=== PATIENT | female | born 1970 | race Caucasian/White ===

== ENCOUNTER 2018-04-07 18:53 | Inpatient (IN) | payer BC, OTHER ==
[2018-04-07 19:04] VITALS: BMI 30.1
--- NOTE | 2018-04-07 19:04 | C.PDOC ---
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 Patient states she was about to have dinner prior to onset. Patient is a noninsulin dependent diabetic. Denies fever, chills, nausea, or vomiting. Time Seen by Provider: 04/07/18 19:03 History Per: Patient History/Exam Limitations: no limitations Onset/Duration Of Symptoms: Hrs Current Symptoms Are (Timing): Still Present Severity: Moderate Pain Scale Rating Of: 4 Quality: Sharp, Tightness, Pressure, Other (Stabbing) Associated Symptoms: Dyspnea Modifying Factors: None Exacerbating Factors: None Alleviating Factors: None Recent travel outside of the [place]: No Additional History Per: Patient Past Medical History Reviewed: Historical Data, Nursing Documentation, Vital Signs Vital Signs: Last Vital Signs Temp 98.6 F 04/07/18 19:08 Pulse 83 04/07/18 20:13 Resp 16 04/07/18 20:13 BP 107/69 04/07/18 20:13 Pulse Ox 97 04/07/18 20:13 - Medical History PMH: Anxiety, Asthma - [facility] Procedures FASCIOTOMY (10/20/13) INJECT STEROID (10/20/13) INJECT/INFUSE NEC (12/28/13) OTH BUNIONECT W SFT SHADIA (10/20/13) OTHER LOCAL DESTRUC SKIN (10/20/13) Family History: States: No Known Family Hx - Social History Hx Alcohol Use: Yes Hx Substance Use: No - Immunization History Hx Tetanus Toxoid Vaccination: No Hx Influenza Vaccination: No Hx Pneumococcal Vaccination: No Review Of Systems Constitutional: Negative for: Fever, Chills Eyes: Negative for: Vision Change ENT: Negative for: Throat Pain Cardiovascular: Positive for: Chest Pain. Negative for: Palpitations Respiratory: Positive for: Shortness of Breath Gastrointestinal: Negative for: Nausea, Vomiting Genitourinary: Negative for: Dysuria Musculoskeletal: Negative for: Back Pain Skin: Negative for: Rash Neurological: Negative for: Weakness, Numbness Psych: Negative for: Anxiety Physical Exam - Physical Exam Appears: Non-toxic Skin: Warm, Dry Head: Normacephalic Eye(s): bilateral: Normal Inspection Oral Mucosa: Moist Neck: Trachea Midline, Supple Chest: Symmetrical, No Tenderness Cardiovascular: Rhythm Regular Respiratory: No Rales, No Rhonchi, No Wheezing Gastrointestinal/Abdominal: Soft, No Tenderness, No Distention, No Guarding, No Rebound Back: Normal Inspection Extremity: Normal ROM Extremity: Bilateral: Atraumatic, Normal Color And Temperature, Normal ROM Pulses: Left Dorsalis Pedis: Normal, Right Dorsalis Pedis: Normal Neurological/Psych: Oriented x3, Normal Speech, Normal Cognition Gait: Steady ED Course And Treatment - Laboratory Results Result Diagrams: 04/07/18 19:17 04/07/18 19:17 ECG: Interpreted By Me, Viewed By Me ECG Rhythm: Sinus Rhythm (74), Nonspecific Changes Pulse Ox Interpretation: Normal - Radiology CXR: Interpreted by Me, Viewed By Me CXR Interpretation: No: Infiltrates, Fracture, Pnemothorax Progress Note: EKG, blood work, and urinalysis ordered. Aspirin administered. Disposition Discussed With : Jelena Lira Comment: accepted the pt on his service and took over the care at 8:38 PM Doctor Will See Patient In The: Hospital Counseled Patient/Family Regarding: Studies Performed, Diagnosis - Disposition Disposition: HOSPITALIZED Disposition Time: 19:15 Condition: FAIR - POA Present On Arrival: Poor Glycemic Control - Clinical Impression Clinical Impression: Chest pain - Scribe Statement The provider has reviewed the documentation as recorded by the Scribe Wade Jovel All medical record entries made by the Scribe were at my direction and personally dictated by me. I have reviewed the chart and agree that the record accurately reflects my personal performance of the history, physical exam, medical decision making, and the department course for this patient. I have also personally directed, reviewed, and agree with the discharge instructions and disposition. Decision To Admit - Pt Status Changed To: Hospital Disposition Of: Inpatient - Admit Certification Admit to Inpatient:: After my assessment, the patient will require hospitalization for at least two midnights. This is because of the severity of symptoms shown, intensity of services needed, and/or the medical risk in this patient being treated as an outpatient. - InPatient: Physician Admission Certification: I certify that this patient requires 2 or more midnights of care for the following reason:: After my assessment, the patient will require hospitalization for at least two midnights. This is because of the severity of symptoms shown, intensity of services needed, and/or the medical risk in this patient being treated as an outpatient. - . Bed Request Type: Telemetry Admitting Physician: Jelena Lira Patient Diagnosis: Chest pain
[2018-04-07] MEDS ORDERED: Aspirin 325 mg EC Tablets PO STA (19:05)
[2018-04-07 19:22] LABS: BASO # 0.1 K/uL (0.0-0.2); BASO % 0.8 % (0.0-2.0); EOS # 0.2 K/uL (0.0-0.7); EOS % 2.7 % (0.0-4.0); HEMOGLOBIN 11.8 g/dL (11.0-16.0); LYMPH # 2.2 K/uL (1.0-4.3); LYMPH % 30.7 % (20.0-40.0); MEAN CELL VOLUME 87.9 fL (81.0-99.0); MEAN CORPUSCULAR HEMOGLOBIN 29.2 pg (27.0-31.0); MEAN CORPUSCULAR HGB CONC 33.3 g/dL (33.0-37.0); MEAN PLATELET VOLUME 7.9 fL (7.2-11.7); MONO # 0.5 K/uL (0.0-0.8); MONO % 7.1 % (0.0-10.0); NEUT # 4.2 K/uL (1.8-7.0); NEUT % 58.7 % (50.0-75.0); NRBC % 0.1 % (0.0-2.0); RBC 4.05 Mil/uL (3.80-5.20); WHITE BLOOD COUNT 7.2 K/uL (4.8-10.8)
[2018-04-07] MEDS ORDERED: Aspirin 325 mg EC Tablets PO ONE (19:24)
[2018-04-07 19:28] LABS: INR 1.2
[2018-04-07 19:32] LABS: ALB/GLOB RATIO 1.3 (1.0-2.1); ALBUMIN 3.9 g/dL (3.5-5.0); ALT/SGPT 43 U/L (9-52); AST/SGOT 23 U/L (14-36); BLOOD UREA NITROGEN 12 mg/dL (7-17); GFR AFRICAN-AMERICAN > 60; GFR NON-AFRICAN AMERICAN > 60; LIPASE 69 U/L (23-300)
[2018-04-07 19:43] LABS: B-TYPE NATRIURETIC PEPTIDE 60.9 pg/mL (0-450)
[2018-04-07 19:56] LABS: HCG,QUALITATIVE URINE NEGATIVE (NEGATIVE)
[2018-04-07 19:58] LABS: SQUAMOUS EPITHIAL 1 /hpf (0-5); URINE BACTERIA RARE (<OCC); URINE BILIRUBIN NEGATIVE (NEGATIVE); URINE BLOOD 3+ (NEGATIVE); URINE CLARITY Clear (Clear); URINE COLOR Colorless (YELLOW); URINE GLUCOSE (UA) NORMAL (Normal); URINE LEUKOCYTE ESTERASE NEG Leu/uL (Negative); URINE PROTEIN NEGATIVE (NEGATIVE); URINE UROBILINOGEN NORMAL mg/dL (0.2-1.0)
--- NOTE | 2018-04-07 22:31 | CP.PCM.HP ---
Past Patient History - Past Social History Smoking Status: Never Smoked - CARDIAC Hx Cardiac Disorders: Yes Hx Heart Murmur: Yes - PULMONARY Hx Asthma: Yes - ENDOCRINE/METABOLIC Hx Endocrine Disorders: Yes Hx Diabetes Mellitus Type 2: Yes - PSYCHIATRIC Hx Anxiety: Yes Hx Substance Use: No - SURGICAL HISTORY Hx Surgeries: Yes Hx Tubal Ligation: Yes Other/Comment: breast reduction,throat,bunion - ANESTHESIA Hx Anesthesia: No Hx Anesthesia Reactions: No Hx Malignant Hyperthermia: No Meds Allergies/Adverse Reactions: Allergies Allergy/AdvReac Type Severity Reaction Status Date / Time No Known Allergies Allergy Verified 04/07/18 19:11 Results - Vital Signs Recent Vital Signs: Last Vital Signs Temp 97.9 F 04/07/18 22:04 Pulse 86 04/07/18 22:04 Resp 18 04/07/18 22:04 BP 137/90 04/07/18 22:04 Pulse Ox 97 04/07/18 22:04 - Labs Result Diagrams: 04/07/18 19:17 04/07/18 19:17 Labs: Laboratory Results - last 24 hr 04/07/18 04/07/18 04/07/18 19:17 19:17 19:17 WBC 7.2 RBC 4.05 Hgb 11.8 Hct 35.6 MCV 87.9 MCH 29.2 MCHC 33.3 RDW 14.0 Plt Count 304 MPV 7.9 Neut % (Auto) 58.7 Lymph % (Auto) 30.7 [place] % (Auto) 7.1 Eos % (Auto) 2.7 Baso % (Auto) 0.8 Neut # (Auto) 4.2 Lymph # (Auto) 2.2 [place] # (Auto) 0.5 Eos # (Auto) 0.2 Baso # (Auto) 0.1 PT 13.0 H INR 1.2 APTT 32 Sodium 138 Potassium 3.6 Chloride 104 Carbon Dioxide 24 Anion Gap 13 BUN 12 Creatinine 0.6 L Est GFR ( Amer) > 60 Est GFR (Non-Af Amer) > 60 POC Glucose (mg/dL) Random Glucose 111 H Calcium 9.0 Total Bilirubin 0.3 AST 23 ALT 43 Alkaline Phosphatase 78 Troponin I < 0.0120 NT-Pro-B Natriuret Pep 60.9 Total Protein 7.0 Albumin 3.9 Globulin 3.1 Albumin/Globulin Ratio 1.3 Lipase 69 Urine Color Urine Clarity Urine pH Ur Specific [place] Urine Protein Urine Glucose (UA) Urine Ketones Urine Blood Urine Nitrate Urine Bilirubin Urine Urobilinogen Ur Leukocyte Esterase Urine WBC (Auto) Urine RBC (Auto) Ur Squamous Epith Cells Urine Bacteria Urine HCG, Qual 04/07/18 04/07/18 19:18 19:40 WBC RBC Hgb Hct MCV MCH MCHC RDW Plt Count MPV Neut % (Auto) Lymph % (Auto) [place] % (Auto) Eos % (Auto) Baso % (Auto) Neut # (Auto) Lymph # (Auto) [place] # (Auto) Eos # (Auto) Baso # (Auto) PT INR APTT Sodium Potassium Chloride Carbon Dioxide Anion Gap BUN Creatinine Est GFR ( Amer) Est GFR (Non-Af Amer) POC Glucose (mg/dL) 109 Random Glucose Calcium Total Bilirubin AST ALT Alkaline Phosphatase Troponin I NT-Pro-B Natriuret Pep Total Protein Albumin Globulin Albumin/Globulin Ratio Lipase Urine Color Colorless Urine Clarity Clear Urine pH 7.0 Ur Specific [place] 1.002 L Urine Protein Negative Urine Glucose (UA) Normal Urine Ketones Negative Urine Blood 3+ H Urine Nitrate Negative Urine Bilirubin Negative Urine Urobilinogen Normal Ur Leukocyte Esterase Neg Urine WBC (Auto) < 1 Urine RBC (Auto) 31 H Ur Squamous Epith Cells 1 Urine Bacteria Rare Urine HCG, Qual Negative
[2018-04-08 00:09] LABS: CK-MB 0.23 ng/mL (0.0-3.38)
[2018-04-08 07:43] LABS: CK-MB < 0.22 ng/mL (0.0-3.38)
--- NOTE | 2018-04-08 08:54 | RAD ---
Chest x-ray single frontal view History: Chest pain. Comparison: None available. Findings: No focal infiltrate or effusion. Heart size within normal limits. Mild right hilar prominence. Impression: No focal infiltrate or effusion.
[2018-04-08] MEDS: Enoxaparin 40 mg Syringe SC SCH (09:43)
[2018-04-08] MEDS: Pantoprazole 40 mg EC Tab PO SCH (09:45)
[2018-04-08] MEDS ORDERED: Dextrose 50% SYRINGE Inj (50 ml) IV PRN (09:56)
[2018-04-08] MEDS ORDERED: Glucagon Recombinant 1 mg Inj IM PRN (09:56)
--- NOTE | 2018-04-08 09:56 | CP.PCM.PN ---
Subjective - Date & Time of Evaluation Date of Evaluation: 04/08/18 Time of Evaluation: 09:49 - Subjective Subjective: PGY-[address] Lira's service Pt seen and examined at bedside. Nursing reports no acute events overnight. Patient found resting comfortably in bed. Patient reports persistent midsternal chest pain, that does not change with respirations/position/exertion. Rates pain as 6/10, and describes it as "stabbing pain in her chest." Denies previous occurrence. She admits seeing freight handler 5 years ago, but denies ever having stress test. She denies family history of cardiac disease. Objective - Vital Signs/Intake and Output Vital Signs (last 24 hours): Temp Pulse Resp BP Pulse Ox 97.6 F 71 18 106/67 95 04/08/18 07:55 04/08/18 08:00 04/08/18 07:55 04/08/18 07:55 04/08/18 07:55 Intake and Output: 04/08/18 04/08/18 06:59 18:59 Intake Total 500 Balance 500 - Medications Medications: Current Medications Alprazolam (Xanax) 0.25 mg PO DAILY PRN PRN Reason: Anxiety Stop: 04/14/18 22:32 Aspirin (Aspirin) 325 mg PO DAILY [facility] Last Admin: 04/08/18 09:42 Dose: 325 mg Enoxaparin Sodium (Lovenox) 40 mg SC DAILY [facility] Last Admin: 04/08/18 09:43 Dose: 40 mg Isosorbide Mononitrate (Imdur Er) 30 mg PO DAILY PRN PRN Reason: CHEST PAIN Metformin HCl (Glucophage Xr) 1,000 mg PO BID [facility] Last Admin: 04/08/18 09:44 Dose: 1,000 mg Pantoprazole Sodium (Protonix Ec Tab) 40 mg PO DAILY [facility] Last Admin: 04/08/18 09:45 Dose: 40 mg Sitagliptin Phosphate (Januvia) 50 mg PO BID [facility] Last Admin: 04/08/18 09:42 Dose: 50 mg Tramadol HCl (Ultram) 50 mg PO Q6H PRN PRN Reason: Pain, moderate (4-7) Last Admin: 04/08/18 06:51 Dose: 50 mg - Labs Labs: 04/07/18 19:17 07/19/18 19:17 PT 13.0 SECONDS (9.7-12.2) H 04/07/18 19:17 INR 1.2 04/07/18 19:17 APTT 32 SECONDS (21-34) 04/07/18 19:17 - Constitutional Appears: Non-toxic, No Acute Distress - Head Exam Head Exam: ATRAUMATIC, NORMAL INSPECTION - Eye Exam Eye Exam: EOMI. absent: Scleral icterus Pupil Exam: PERRL - ENT Exam ENT Exam: Mucous Membranes Moist - Neck Exam Neck Exam: Full ROM - Respiratory Exam Respiratory Exam: Clear to Ausculation Bilateral, NORMAL BREATHING PATTERN. absent: Chest Wall Tenderness, Rales, Rhonchi, Wheezes - Cardiovascular Exam Cardiovascular Exam: REGULAR RHYTHM, +S1, +S2 - GI/Abdominal Exam GI & Abdominal Exam: Soft, Normal Bowel Sounds. absent: Tenderness - Extremities Exam Extremities Exam: Normal Inspection. absent: Pedal Edema, Tenderness - Back Exam Back Exam: absent: CVA tenderness (L), CVA tenderness (R) - Neurological Exam Neurological Exam: Alert, Awake, Oriented x3 - Psychiatric Exam Psychiatric exam: Normal Affect, Normal Mood - Skin Skin Exam: Dry, Normal Color, Warm Assessment and Plan - Assessment and Plan (Free Text) Plan: Chest Pain, R/o ACS Admit on Tele KAMRYN negative x 3 EKG: Rate 74 bpm; No ST/T wave changes Pro-BNP 61, Lipase 63, AST/ALT WNL CXR (04/07/2018): No focal infiltrates or effusions (see full report) Dr. Dorado, Cardio on board, help appreciated - f/u reccs ASA 325 mg PO given in ED - ASA 325mg PO Daily Imdur 30mg PO Daily for chest pain O2 2L PRN f/u ECHO f/u TSH/free T4, lipid panel, Hgb A1C f/u AM CBC, CMP, Mg, Phos Hematuria UA (04/08/18): 3+ blood, 31 RBCs Anxiety Xanax 0.25mg PO Daily PRN Diabetes Mellitus Hypoglycemia Protocol Accuchecks ACHS Metformin 1000mg PO BID Januvia 50mg PO BID f/u A1c Prophylaxis Lovenox 40mg SC daily Protonix 40mg PO Daily SCDs Ignacio Stroud PGY2 All medical mgmt per Dr Lira
[2018-04-08 11:52] LABS: CK-MB < 0.22 ng/mL (0.0-3.38)
--- NOTE | 2018-04-08 16:01 | CARD ---
APPROVED REPORT Date of service: 04/08/2018 EXAM: Two-dimensional and M-mode echocardiogram with Doppler and color Doppler. INDICATION Chest Pain RISK FACTORS Diabetes 2D DIMENSIONS IVSd0.5 (0.7-1.1cm)LVDd5.1 (3.9-5.9cm) PWd0.4 (0.7-1.1cm)LVDs2.6 (2.5-4.0cm) FS (%) 49.6 %LVEF (%)50.0 (>50%) M-Mode DIMENSIONS RVDd1.59 (2.1-3.2cm)Left Atrium (MM)3.37 (2.5-4.0cm) IVSd0.62 (0.7-1.1cm)Aortic Root2.05 (2.2-3.7cm) LVDd5.24 (4.0-5.6cm)Aortic Cusp Exc.1.32 (1.5-2.0cm) PWd0.68 (0.7-1.1cm)FS (%) 45 % LVDs2.86 (2.0-3.8cm)LVEF (%)76 (>50%) Mitral Valve MV E Rojqmsao287.4cm/sMV A Gdqpfhmi67.9cm/sE/A ratio1.7 TDI E/Lateral E'0.0E/Medial E'0.0 Tricuspid Valve TR Peak [id number]/sTR Peak [id number] LEFT VENTRICLE The left ventricle is normal size. There is normal left ventricular wall thickness. Left ventricle systolic function is borderline. There is normal LV segmental wall motion. The left ventricular diastolic function is normal. RIGHT VENTRICLE The right ventricle is normal size. There is normal right ventricular wall thickness. The right ventricular systolic function is normal. ATRIA The left atrium size is normal. The right atrium size is normal. AORTIC VALVE The aortic valve is normal in structure. No aortic regurgitation is present. There is no aortic valvular stenosis. MITRAL VALVE The mitral valve is normal in structure. There is no evidence of mitral valve prolapse. There is no mitral valve stenosis. There is no mitral valve regurgitation noted. TRICUSPID VALVE The tricuspid valve is normal in structure. There is mild tricuspid regurgitation. PULMONIC VALVE The pulmonary valve is normal in structure. There is no pulmonic valvular regurgitation. GREAT VESSELS The aortic root is normal in size. The IVC is dilated. PERICARDIAL EFFUSION There is no pericardial effusion. <Conclusion> The left ventricle is normal size. There is normal left ventricular wall thickness. Left ventricle systolic function is borderline. There is normal LV segmental wall motion.
--- NOTE | 2018-04-08 20:42 | CP.PCM.PN ---
Subjective - Date & Time of Evaluation Date of Evaluation: 04/08/18 Time of Evaluation: 08:30 - Subjective Subjective: clinically same Objective - Vital Signs/Intake and Output Vital Signs (last 24 hours): Temp Pulse Resp BP Pulse Ox 97.9 F 76 18 125/78 98 04/08/18 16:00 04/08/18 16:14 04/08/18 16:00 04/08/18 16:00 04/08/18 16:00 Intake and Output: 04/08/18 04/09/18 18:59 06:59 Intake Total 300 Balance 300 - Medications Medications: Current Medications Alprazolam (Xanax) 0.25 mg PO DAILY PRN PRN Reason: Anxiety Stop: 04/14/18 22:32 Aspirin (Aspirin) 325 mg PO DAILY [facility] Last Admin: 04/08/18 09:42 Dose: 325 mg Dextrose (Dextrose 50% Inj) 0 ml IV STAT PRN; Protocol PRN Reason: Hypoglycemia Protocol Dextrose (Glutose 15) 0 gm PO ONCE PRN; Protocol PRN Reason: Hypoglycemia Protocol Enoxaparin Sodium (Lovenox) 40 mg SC DAILY [facility] Last Admin: 04/08/18 09:43 Dose: 40 mg Glucagon (Glucagen Diagnostic Kit) 0 mg IM STAT PRN; Protocol PRN Reason: Hypoglycemia Protocol Dextrose (Dextrose 5% In Water 1000 Ml) 1,000 mls @ 0 mls/hr IV .Q0M PRN; Protocol; Per Protocol PRN Reason: Hypoglycemia Protocol Isosorbide Mononitrate (Imdur Er) 30 mg PO DAILY PRN PRN Reason: CHEST PAIN Metformin HCl (Glucophage Xr) 1,000 mg PO BID [facility] Last Admin: 04/08/18 17:24 Dose: 1,000 mg Pantoprazole Sodium (Protonix Ec Tab) 40 mg PO DAILY [facility] Last Admin: 04/08/18 09:45 Dose: 40 mg Sitagliptin Phosphate (Januvia) 50 mg PO BID [facility] Last Admin: 04/08/18 17:22 Dose: 50 mg Tramadol HCl (Ultram) 50 mg PO Q6H PRN PRN Reason: Pain, moderate (4-7) Last Admin: 04/08/18 06:51 Dose: 50 mg - Labs Labs: 04/07/18 19:17 04/07/18 19:17 PT 13.0 SECONDS (9.7-12.2) H 04/07/18 19:17 INR 1.2 04/07/18 19:17 APTT 32 SECONDS (21-34) 04/07/18 19:17 - Constitutional Appears: Well - Head Exam Head Exam: ATRAUMATIC, NORMAL INSPECTION, NORMOCEPHALIC - Eye Exam Eye Exam: EOMI, Normal appearance, PERRL Pupil Exam: NORMAL ACCOMODATION, PERRL - ENT Exam ENT Exam: Mucous Membranes Moist, Normal Exam - Neck Exam Neck Exam: Full ROM, Normal Inspection. absent: Lymphadenopathy - Respiratory Exam Respiratory Exam: Decreased Breath Sounds - Cardiovascular Exam Cardiovascular Exam: REGULAR RHYTHM, +S1, +S2 - GI/Abdominal Exam GI & Abdominal Exam: Soft, Diminished Bowel Sounds - Rectal Exam Rectal Exam: Deferred
[2018-04-08 21:18] LABS: BARBITURATES, UR NEGATIVE (NEGATIVE); BENZODIAZEPINES, UR NEGATIVE (NEGATIVE); OPIATES, UR NEGATIVE (NEGATIVE); PHENCYCLIDINE, UR NEGATIVE (NEGATIVE)
--- NOTE | 2018-04-09 02:30 | CON ---
DATE: 04/08/2018 CARDIOLOGY CONSULTATION REASON FOR CONSULTATION: Chest pain. HISTORY OF PRESENT ILLNESS: The patient is a 47-year-old female who has no known prior history of coronary artery disease. She presented with a sharp retrosternal chest pain, not associated with diaphoresis or shortness of breath and non-radiating. The patient experienced her pain just before dinner last night. The patient has a history of insulin-dependant diabetes mellitus. The patient at this time is chest pain free. SOCIAL HISTORY: The patient is nonsmoker, but the patient is a drinker. MEDICATIONS: Aspirin 325 mg once a day, Glucophage 1 gm twice a day, Imdur 30 mg once a day, Januvia 50 mg once a day, Lovenox 40 mg subcutaneous once a day, Xanax 0.25 mg daily. REVIEW OF SYSTEMS: No fever or chills. No vomiting or diarrhea. No dizziness or syncope. PHYSICAL EXAMINATION: GENERAL: The patient is a middle-aged female who does not appear to be in any distress. VITAL SIGNS: Blood pressure 106/67, heart rate 75, temperature 97.6, respirations 18. HEENT: Normocephalic. NECK: No JVD. CHEST: Clear. HEART: S1, S2 are regular. ABDOMEN: Soft. EXTREMITIES: No edema. LABORATORY DATA: SMA-7: Sodium 138, potassium 3.6, chloride 104, CO2 of 24, glucose 111, BUN 12, creatinine 0.6. A total of four sets of troponins are within normal limit. Lipase level is within normal limit. Liver profile is within normal limit. CBC is entirely within normal limit. D-dimer is within normal limit. INR is 1.2 and PTT 32. EKG: There is no EKG on the [employer] database so far. ASSESSMENT: 1. Chest pain rule out myocardial infarction. 2. Uncontrolled diabetes mellitus. 3. Rule out underlying congestive heart failure. RECOMMENDATIONS: Continue aspirin 325 mg once a day, Imdur 30 mg once a day, Lovenox 40 mg subcutaneous once a day. Obtain a 12-lead EKG, and I will review the echocardiograph study performed today. Obtain drug screen. Sourav Medley MD
[2018-04-09 07:21] VITALS: BP 107/71; RESP 20; TEMP 97.5; O2SAT 97
[2018-04-09 08:13] VITALS: PULSE 66
[2018-04-09 08:19] LABS: BASO % 0.5 % (0.0-2.0); EOS # 0.3 K/uL (0.0-0.7); HEMOGLOBIN 11.9 g/dL (11.0-16.0); LYMPH # 2.3 K/uL (1.0-4.3); MEAN CELL VOLUME 88.5 fL (81.0-99.0); MEAN CORPUSCULAR HEMOGLOBIN 29.9 pg (27.0-31.0); MEAN CORPUSCULAR HGB CONC 33.7 g/dL (33.0-37.0); MEAN PLATELET VOLUME 8.5 fL (7.2-11.7); MONO # 0.4 K/uL (0.0-0.8); MONO % 6.3 % (0.0-10.0); NEUT % 50.2 % (50.0-75.0); NRBC % 0.2 % (0.0-2.0); RBC 3.98 Mil/uL (3.80-5.20); RED CELL DISTRIBUTION WIDTH 13.5 % (11.5-14.5); WHITE BLOOD COUNT 6.1 K/uL (4.8-10.8)
[2018-04-09 08:26] LABS: ALB/GLOB RATIO 1.2 (1.0-2.1); ALBUMIN 3.7 g/dL (3.5-5.0); ALT/SGPT 42 U/L (9-52); AST/SGOT 28 U/L (14-36); BLOOD UREA NITROGEN 13 mg/dL (7-17); CALCIUM 8.9 mg/dl (8.6-10.4); GFR AFRICAN-AMERICAN > 60; GFR NON-AFRICAN AMERICAN > 60; HDL CHOLESTEROL 54 mg/dL (30-70)
[2018-04-09 08:35] LABS: LDL CHOLESTEROL 65 mg/dL (0-129)
[2018-04-09] MEDS: Enoxaparin 40 mg Syringe SC SCH (09:05)
[2018-04-09] MEDS: Pantoprazole 40 mg EC Tab PO SCH (09:05)
--- NOTE | 2018-04-09 10:25 | US ---
Date of service: 04/09/2018 PROCEDURE: Ultrasound of the Kidneys HISTORY: HX of UTI COMPARISON: None available. TECHNIQUE: Sonogram of the kidneys. FINDINGS: RIGHT KIDNEY: Measures: 10.8 x 5.7 x 6.3 cm. Normal in size, contour and echogenicity. There is no definitive hydronephrosis. No urolithiasis or discrete cystic or solid masses identified. LEFT KIDNEY: Measures: 11.0 x 6.1 x 5.8 cm. Normal in size, contour and echogenicity. No stone, solid mass lesion or hydronephrosis visualized. OTHER FINDINGS: None. IMPRESSION: Unremarkable renal sonogram.
--- NOTE | 2018-04-09 10:51 | CP.PCM.PN ---
Subjective - Date & Time of Evaluation Date of Evaluation: 04/09/18 Time of Evaluation: 10:48 - Subjective Subjective: PATIENT WAS ADMITTED FOR CHEST PAIN DENIES CHEST PAIN / SOB NO SIGN OF DISTRESS NOTED Objective - Vital Signs/Intake and Output Vital Signs (last 24 hours): Temp Pulse Resp BP Pulse Ox 97.5 F L 66 20 107/71 97 04/09/18 07:20 04/09/18 08:00 04/09/18 07:20 04/09/18 07:20 04/09/18 07:20 - Medications Medications: Current Medications Alprazolam (Xanax) 0.25 mg PO DAILY PRN PRN Reason: Anxiety Stop: 04/14/18 22:32 Aspirin (Aspirin) 325 mg PO DAILY [facility] Last Admin: 04/09/18 09:05 Dose: 325 mg Dextrose (Dextrose 50% Inj) 0 ml IV STAT PRN; Protocol PRN Reason: Hypoglycemia Protocol Dextrose (Glutose 15) 0 gm PO ONCE PRN; Protocol PRN Reason: Hypoglycemia Protocol Enoxaparin Sodium (Lovenox) 40 mg SC DAILY [facility] Last Admin: 04/09/18 09:05 Dose: 40 mg Glucagon (Glucagen Diagnostic Kit) 0 mg IM STAT PRN; Protocol PRN Reason: Hypoglycemia Protocol Dextrose (Dextrose 5% In Water 1000 Ml) 1,000 mls @ 0 mls/hr IV .Q0M PRN; Protocol; Per Protocol PRN Reason: Hypoglycemia Protocol Isosorbide Mononitrate (Imdur Er) 30 mg PO DAILY PRN PRN Reason: CHEST PAIN Metformin HCl (Glucophage Xr) 1,000 mg PO BID [facility] Last Admin: 04/09/18 09:05 Dose: 1,000 mg Pantoprazole Sodium (Protonix Ec Tab) 40 mg PO DAILY [facility] Last Admin: 04/09/18 09:05 Dose: 40 mg Sitagliptin Phosphate (Januvia) 50 mg PO BID [facility] Last Admin: 04/09/18 09:05 Dose: 50 mg Tramadol HCl (Ultram) 50 mg PO Q6H PRN PRN Reason: Pain, moderate (4-7) Last Admin: 04/08/18 06:51 Dose: 50 mg - Labs Labs: 04/09/18 08:02 04/09/18 08:02 PT 13.0 SECONDS (9.7-12.2) H 04/07/18 19:17 INR 1.2 04/07/18 19:17 APTT 32 SECONDS (21-34) 04/07/18 19:17 Assessment and Plan - Assessment and Plan (Free Text) Assessment: PATIENT SEEN AND EXAMINED AT THE BEDSIDE LUNG SOUND CLEAR MAKAYLA ECG NORMAL RENAL US WAS UNREMARKABLE DISCUSS WITH DR Ugo STILES AND DR DAVIES WHO CLEAR FOR DC FOLLOW UP WITH DR Ugo STILES IN 1-2 WEEK AT HIS OFFICE --CALL FOR APPOINTMENT CONTINUE ALL YOUR HOME MEDICATION NEW PRESCRIPTION GIVEN PROTONIX 40 MG PO DAILY ASPIRIN 325 MG PO DAILY ACTIVITY TOLERATED CALL DR Ugo STILES OR GO TO THE EMERGENCY ROOM IF SYMPTOMS RETURN OR WORSENING DISCUSS WITH PATIENT WHO AGREE AND VERBALIZED UNDERSTANDING
== END 2018-04-09 12:02 | disposition home or self-care (01) | DRG 313 ==
LOC: C.ER 18:53 → C.9E 20:37 → C.5S 21:25
PROVIDERS: ADMIT Internal Medicine Nephrology; ATTEND Internal Medicine Nephrology
DX: R07.2 Precordial pain (principal); E11.65 Type 2 diabetes mellitus with hyperglycemia; J45.909 Unspecified asthma, uncomplicated; Z79.4 Long term (current) use of insulin; Z79.82 Long term (current) use of aspirin; Z98.51 Tubal ligation status

== ENCOUNTER 2018-12-21 06:24 | Day surgery (SDC) | payer BC ==
[2018-12-21 06:45] VITALS: BMI 32.8
[2018-12-21] MEDS ORDERED: Lactated Ringer's 500 ML IV ONE (08:21)
--- NOTE | 2018-12-21 08:21 | CP.SDSHP ---
Same Day Surgery H & P - History Proposed Procedure: EGD Pre-Op Diagnosis: GERD - Previous Medical/Surgical History Pulmonary: Asthma - Allergies Allergies: Allergies No Known Allergies Allergy (Verified 04/07/18 19:11) - Physical Exam General Appearance: NAD Vital Signs: Vital Signs 12/21/18 06:46 Temperature 97.3 F L Pulse Rate 80 Respiratory 20 Rate Blood Pressure 124/83 O2 Sat by Pulse 97 Oximetry Mental Status: Alert & Oriented x3 Neuro: WNL Heart: WNL Lungs: WNL GI: WNL - {Optional Preform as Required} Abdomen: WNL - Impression Pt. Evaluated Today:Candidate for Anesthesia & Procedure: Yes - Date & Time Date: 12/21/18 Time: 08:21 Short Stay Discharge - Short Stay Discharge Admitting Diagnosis/Reason for Visit: GERD Disposition: HOME/ ROUTINE
[2018-12-21 08:30] VITALS: O2SAT 100
[2018-12-21] MEDS ORDERED: Midazolam 2 MG/2 ML VIAL ONE (08:30)
[2018-12-21] MEDS ORDERED: Propofol 10 mg/ml Inj (20 ML) ONE (08:30)
[2018-12-21 08:54] VITALS: TEMP 97.6
[2018-12-21 09:01] VITALS: RESP 17
[2018-12-21 09:44] VITALS: BP 129/78; PULSE 89
== END 2018-12-21 09:37 | disposition home or self-care (01) ==
LOC: C.ENDO 06:24
PROVIDERS: ATTEND Internal Medicine Gastroenterology
DX: K31.7 Polyp of stomach and duodenum (principal); K21.0 Gastro-esophageal reflux disease with esophagitis; K29.00 Acute gastritis without bleeding; K29.50 Unspecified chronic gastritis without bleeding; J45.909 Unspecified asthma, uncomplicated
CPT/HCPCS: 43239; 43251; 82948; 84703; 88305; 88312; 88313; 88342; J2001; J2250; J2704; J3010; J7120